=== PATIENT | male | born 1940 | race Hispanic/Latino ===

== ENCOUNTER 2016-12-10 16:04 | Emergency (ER) | payer MEDICARE ==
[2016-12-10 16:26] VITALS: BP 77/34
[2016-12-10] MEDS ORDERED: NACL 0.9% 1000 ML 1,000 ML ONE (16:31)
[2016-12-10] MEDS ORDERED: NACL 0.9% 1000 ML 1,000 ML IV ONE ×2 (16:52→17:19)
--- NOTE | 2016-12-10 17:26 | Emergency Department Report ---
HPI - General Chief Complaint: Altered Mental Status Time Seen by Provider: 12/10/16 16:49 - HPI HPI: Room 23 The patient is 76-year-old male presented with a chief complaint altered mental status. Patient is a resident of a halfway who sent to him to the ED because they state that he is altered. The patient is somewhat belligerent to staff. When asked what is bothering him the patient does not answer. When asked if he is hurting the patient states yes and when asked where he replies "everywhere." Location: Altered mental status Duration: [see above] Quality: [see above] Severity: [see above] Modifying factors: [see above] Context: [see above] Mode of transportation: [not driving] ED Past Medical Hx - Past Medical History Previous Medical History?: Yes Hx Hypertension: Yes Hx CVA: Yes Hx GERD: Yes Hx Seizures: Yes Hx Dementia: Yes - Surgical History Past Surgical History?: No - Family History Family history: no significant - Social History Smoking Status: Unknown if ever smoked Substance Use Type: None - Medications Home Medications: Home Medications Medication Instructions Recorded Confirmed Last Taken Type Aspirin [Adult Low Dose Aspirin EC] 81 mg PO QDAY 11/17/16 11/17/16 11/14/16 09: 00 History Donepezil [Aricept] 10 mg PO QHS 11/17/16 11/17/16 11/14/16 21:00 History Famotidine [Pepcid] 20 mg PO QDAY 11/17/16 11/17/16 11/14/16 09:00 History Ferrous Sulfate [Feosol 325 MG tab] 325 mg PO QDAY 11/17/16 11/17/16 11/14/16 09 :00 History HYDROcodone/APAP 5-325 [[place] 5 - 325 tab PO BID PRN 11/17/16 11/20/16 Unknown History 5-325 mg TAB] LORazepam [Ativan] 1 mg PO Q6HR PRN 11/17/16 11/17/16 Unknown History Latanoprost 0.005% [Xalatan 0.005%] 1 drop OP QPM 11/17/16 11/17/16 11/14/16 09: 00 History Lisinopril [Zestril TAB] 5 mg PO QDAY 11/17/16 11/17/16 11/14/16 09:00 History Memantine HCl [Namenda] 10 mg PO BID 11/17/16 11/17/16 11/14/16 09:00 History Mirtazapine [Remeron] 15 mg PO QHS 11/17/16 11/17/16 11/14/16 21:00 History Multivitamin No.44/Vit D3/K 1 each PO QHS 11/17/16 11/17/16 11/14/16 09:00 History [Multivitamins Softgels] Phenytoin [Dilantin] 150 mg PO BID 11/17/16 11/17/16 11/14/16 09:00 History Sennosides [Senna Laxative] 2 tab PO BID 11/17/16 11/20/16 Unknown History Tamsulosin [Flomax] 0.4 mg PO QDAY 11/17/16 11/17/16 11/14/16 21:00 History Venlafaxine [Effexor] 37.5 mg PO QDAY 11/17/16 11/17/16 11/14/16 09:00 History ED Review of Systems ROS: Stated complaint: AMS Other details as noted in HPI Comment: Unobtainable due to pts medical conditions Physical Exam - Physical Exam Vital Signs: Vital Signs 12/10/16 16:21 Pulse Rate 86 Blood Pressure 77/34 O2 Sat by Pulse 92 Oximetry Physical Exam: GENERAL: The patient is well-developed elderly male lying on stretcher appearing confused HEENT: Normocephalic. Atraumatic. NECK: Trachea midline CHEST/LUNGS: Clear to auscultation. HEART/CARDIOVASCULAR: Regular. There is no tachycardia. There is no gallop rub or murmur. ABDOMEN: Abdomen is soft. Patient has normal bowel sounds. There is no abdominal distention. SKIN: There is no rash. There is no edema. There is no diaphoresis. NEURO: The patient is awake but does not appear oriented. The patient is not cooperative. Patient moves all extremities. The patient has normal speech MUSCULOSKELETAL: There is no tenderness or deformity. There is no limitation range of motion. There is no evidence of acute injury. ED Course Vital Signs 12/10/16 16:21 Pulse Rate 86 Blood Pressure 77/34 O2 Sat by Pulse 92 Oximetry - Reevaluation(s) Reevaluation #1: 12/10/16 17:29 Called to the room for patient being unresponsive. Upon my arrival the patient was apneic and pulseless with a rhythm revealing PEA. Patient was intubated by myself and ACLS protocols initiated. (See Code sheet) ED Medical Decision Making - Lab Data Laboratory Tests 12/10/16 12/10/16 12/10/16 16:44 16:44 16:44 WBC 15.3 H RBC 3.95 Hgb 12.1 Hct 36.5 MCV 92 MCH 31 MCHC 33 RDW 14.6 Plt Count 477 H Lymph % (Auto) 6.9 L Nye % (Auto) 11.1 H Eos % (Auto) 0.2 Baso % (Auto) 0.3 Lymph # 1.0 L Nye # 1.7 H Eos # 0.0 Baso # 0.0 Seg Neutrophils % 81.5 H Seg Neutrophils # 12.5 H Sodium 140 Potassium 4.6 Chloride 101.4 Carbon Dioxide 5 L* Anion Gap 38 BUN 134 H Creatinine 9.6 H Estimated GFR 5 BUN/Creatinine Ratio 13.95 Glucose 115 H Lactic Acid 2.4 H* Calcium 8.9 Magnesium 1.9 Total Bilirubin 0.2 ALT 60 H Alkaline Phosphatase 85 Ammonia Total Protein 7.7 Albumin 3.4 L Albumin/Globulin Ratio 0.8 TSH Free T4 Salicylates Acetaminophen Phenytoin Plasma/Serum Alcohol 12/10/16 12/10/16 12/10/16 16:44 16:44 16:44 WBC RBC Hgb Hct MCV MCH MCHC RDW Plt Count Lymph % (Auto) Nye % (Auto) Eos % (Auto) Baso % (Auto) Lymph # Nye # Eos # Baso # Seg Neutrophils % Seg Neutrophils # Sodium Potassium Chloride Carbon Dioxide Anion Gap BUN Creatinine Estimated GFR BUN/Creatinine Ratio Glucose Lactic Acid Calcium Magnesium Total Bilirubin ALT Alkaline Phosphatase Ammonia Total Protein Albumin Albumin/Globulin Ratio TSH Free T4 Salicylates < 0.3 L Acetaminophen < 15.0 Phenytoin 1.3 L Plasma/Serum Alcohol < 0.01 12/10/16 12/10/16 17:04 17:04 WBC RBC Hgb Hct MCV MCH MCHC RDW Plt Count Lymph % (Auto) Nye % (Auto) Eos % (Auto) Baso % (Auto) Lymph # Nye # Eos # Baso # Seg Neutrophils % Seg Neutrophils # Sodium Potassium Chloride Carbon Dioxide Anion Gap BUN Creatinine Estimated GFR BUN/Creatinine Ratio Glucose Lactic Acid Calcium Magnesium Total Bilirubin ALT Alkaline Phosphatase Ammonia 33.0 Total Protein Albumin Albumin/Globulin Ratio TSH 2.010 Free T4 0.95 Salicylates Acetaminophen Phenytoin Plasma/Serum Alcohol - EKG Data -: EKG Interpreted by Me EKG shows normal: sinus rhythm Rate: normal - EKG Data When compared to previous EKG there are: previous EKG unavailable Interpretation: other (right bundle-branch block) - Differential Diagnosis dehydration, sepsis, hemorrhagic shock, hypovolemia Critical care attestation.: If time is entered above; I have spent that time in minutes in the direct care of this critically ill patient, excluding procedure time. ED Disposition Clinical Impression: Renal failure, Cardiac arrest Disposition: MEDICAL FACILITY Is pt being admited?: No Does the pt Need Aspirin: No Condition: Poor Referrals: PRIMARY CARE, [Primary Care Provider] - 3-5 Days Time of Disposition: 18:14 (patient ) Blank Doc - Documentation Documentation: The patient was intubated via orotracheal route using a 8.0 mm endotracheal tube. Rapid sequence induction was not used. Positioning was confirmed using auscultation and CO2 detector. Post intubation chest xray was ordered.
[2016-12-10 17:29] LABS: Hematocrit 36.5 % (35.5-45.6); Hemoglobin 12.1 gm/dl (11.8-15.2); Mean Corpuscular HGB Conc 33 % (32-34); Mean Corpuscular Hemoglobin 31 pg (28-32); Mean Corpuscular Volume 92 fl (84-94); Red Blood Count 3.95 M/mm3 (3.65-5.03); Red Cell Distribution Width 14.6 % (13.2-15.2); White Blood Count 15.3 K/mm3 (4.5-11.0)
[2016-12-10 17:30] LABS: Platelet Count 477 K/mm3 (140-440)
[2016-12-10] MEDS ORDERED: XYLOCAINE CARDIAC IV ONE (17:30)
[2016-12-10] MEDS ORDERED: CORDARONE IV ONE (17:30)
[2016-12-10] MEDS ORDERED: XYLOCAINE/D5W 2GM/500ML DRIP IV ONE (17:30)
[2016-12-10] MEDS ORDERED: SODIUM BICARBONATE IV ONE (17:30)
[2016-12-10] MEDS ORDERED: ADRENALIN ONE (17:30)
[2016-12-10] MEDS ORDERED: INTROPIN DRIP 800 MG/D5W 250 ML IV ONE (17:30)
[2016-12-10] MEDS ORDERED: ATROPINE 0.1% (CARDIAC) ONE (17:30)
[2016-12-10 17:31] LABS: Basophils % (Auto) 0.3 % (0.0-1.8); Eosinophils % (Auto) 0.2 % (0.0-4.3)
[2016-12-10 17:51] LABS: Albumin 3.4 g/dL (3.9-5); Albumin/Globulin Ratio 0.8 %; Bilirubin,Total 0.2 mg/dL (0.1-1.2); Calcium 8.9 mg/dL (8.4-10.2); Chloride 101.4 mmol/L (98-107); Magnesium 1.9 mg/dL (1.7-2.3); Potassium 4.6 mmol/L (3.6-5.0); Total Protein 7.7 g/dL (6.3-8.2)
[2016-12-10] MEDS ORDERED: LEVOPHED DRIP 4 MG/NS 250 ML 0 MG/0 ML BAG IV ONE (18:02)
[2016-12-10 18:04] LABS: Salicylate < 0.3 mg/dL (2.8-20.0)
[2016-12-10 18:09] LABS: BUN/Creatinine Ratio 13.95
== END 2016-12-10 18:14 ==
LOC: ED 16:04
DX: I46.9 Cardiac arrest, cause unspecified (principal); N19 Unspecified kidney failure; I10 Essential (primary) hypertension; K21.9 Gastro-esophageal reflux disease without esophagitis; F03.90 Unspecified dementia, unspecified severity, without behavioral disturbance, psychotic disturbance, mood disturbance, and anxiety; Z86.73 Personal history of transient ischemic attack (TIA), and cerebral infarction without residual deficits
CPT/HCPCS: 31500; 36415; 80053; 80185; 82140; 82962; 83735; 84439; 84443; 85025; 87040; 92950; 93005; 93010; 96360; 99285; G0480; J0171; J0282; J0461; J1265; J2001; J7030; 80320